=== PATIENT | female | born 1945 | race Hispanic/Latino ===

== ENCOUNTER → 2017-10-14 11:57 | Outpatient (CLI) | payer MEDICARE, OTHER, SELFPAY ==
--- NOTE | 2017-10-14 | DI.RAD.S_ITS ---
This blank DEXA report has been sent in error by the PACS system. The correct and complete report will be forthcoming in 1-2 days. Thank you for your patience and understanding. Dictated by: Deo Mckeon M.D. on 10/14/2017 at 13:50 Approved by: Deo Mckeon M.D. on 10/14/2017 at 13:50
--- NOTE | 2017-10-14 | DI.US.S_ITS ---
PROCEDURE: US PELVIC COMPLETE INDICATIONS: UTERINE FIBROIDS TECHNIQUE: Real-time scanning was performed of the pelvic organs, with image documentation. Additional endovaginal scanning was necessary due to incomplete visualization of the adnexal and endometrial structures by transabdominal scanning. COMPARISON: [facility], , PELVIC COMPLETE, 11/04/2015, 10:49. FINDINGS: Transabdominal scanning: Limited scanning through the kidneys shows no hydronephrosis. No pathologic free abdominal or pelvic fluid. Endovaginal scanning: Uterus: Uterus is normal in size at 6.4 x 4.3 x 5.2 cm. The endometrium measures 2.8 mm in combined thickness. 3 intramural fibroids present unchanged from prior examination largest measuring 1.8 x 1.8 x 1.3 cm. Ovaries: The right ovary is not visualized. The left ovary is normal measuring 2.0 x 0.9 x 1.2 cm. IMPRESSION: Myomatous uterus appearing unchanged from prior exam. Dictated by: Georgi PHAN Interpreted: Bonilla Kim MD on 10/14/2017 at 13:15 Approved by: Bonilla Kim M.D. on 10/14/2017 at 14:30
== END ==
PROVIDERS: Family Provider Family Medicine; PCP Family Medicine; Visit Provider Physician Assistant
DX: D25.1 Intramural leiomyoma of uterus (principal); Z78.0 Asymptomatic menopausal state; E07.9 Disorder of thyroid, unspecified; R29.890 Loss of height
CPT/HCPCS: 76830; 76856; 77080

== ENCOUNTER → 2018-02-27 12:37 | Outpatient (CLI) | payer MEDICARE, OTHER, SELFPAY ==
[2018-02-27 13:17] LABS: Add Manual Diff / Slide Review NO; Eosinophils Percent Auto 1.5 % (2-4); Hematocrit 40.9 % (36-46); Lymphocytes Percent Auto 35.8 % (25-40); Mean Corpuscular HGB Conc 34.2 % (30-36); Mean Corpuscular Hemoglobin 30.2 PG (26-34); Mean Corpuscular Volume 88.3 fL (80-100); Monocytes Percent Auto 5.3 % (3-14); Neutrophils Absolute Auto 5400 /uL (1500-7000); Neutrophils Percent Auto 56.4 % (50-75); Platelet Count 288 X10^3/uL (150-400); Red Blood Cell Count 4.63 X10^6/uL (4.0-5.2); Red Cell Distribution Width 12.8 % (11.6-14.8); White Blood Cell Count 9.7 X10^3/uL (4.5-11.0)
[2018-02-27 13:49] LABS: Alanine Aminotransferase 38 IU/L (9-52); Albumin 4.4 g/dL (3.5-5.0); Albumin Globulin Ratio 1.3 (1.0-2.8); Alkaline Phosphatase 66 U/L (38-126); Aspartate Aminotransferase 25 IU/L (14-36); Bilirubin Total 0.3 mg/dL (0.2-1.3); Blood Urea Nitrogen 18 mg/dL (7-17); Calcium 9.1 mg/dL (8.4-10.2); Carbon Dioxide 27 mmol/L (22-32); Chloride 100 mmol/L (98-107); Estimated Glomerular Filt Rate > 60.0 mL/min (>60); Globulin 3.5 g/dL (1.7-4.1); Glucose 104 mg/dL (80-110); HEMOLYSIS < 15 (0-50); Potassium 4.2 mmol/L (3.4-5.1); Sodium 139 mmol/L (137-145); Thyroid Stimulating Hormone 0.06 uIU/mL (0.47-4.68); Total Protein 7.9 g/dL (6.3-8.2)
[2018-02-27 14:17] LABS: Carcinoembryonic Antigen 1.5 ng/mL (0.1-3.0)
== END ==
PROVIDERS: Family Provider Internal Medicine; PCP Internal Medicine; Visit Provider Nurse Practitioner Gerontology
DX: C73 Malignant neoplasm of thyroid gland (principal)
CPT/HCPCS: 36415; 80053; 82378; 84443; 85025

== ENCOUNTER 2018-07-20 07:20 | Day surgery (SDC) | payer MEDICARE, OTHER, SELFPAY ==
[2018-07-20] VITALS (7 sets, daily range): BP systolic 70–97; BP diastolic 37–57; PULSE 52–55; RESP 11–16; TEMP 35.8–36.4; O2SAT 96–100; BMI 25.8
--- NOTE | 2018-07-20 | PATH_ITS ---
[facility] Accession Number: [id number] . 01 Material submitted: . PART A: colon - TRANSVERSE COLON POLYP PART B: colon - ASCENDING COLON POLYP X3 PART C: sigmoid colon - SIGMOID COLON POLYP . 01 Clinical history: . SCREENING COLONOSCOPY . 02 Diagnosis: A. Transverse Colon, Polyp, Biopsy: Tubular adenoma. . B. Ascending Colon, Polyps X3, Biopsies: Tubular adenoma in 2 of 4 fragments. Inflammatory polyp in 1 fragment. . C. Sigmoid Colon, Polyp, Biopsy: Tubular adenoma. BFI/07/21/2018 . 02 Electronically signed: . Alessia Conroy MD, Pathologist NPI- [id number] . 01 Gross description: . Part A: TRANSVERSE COLON POLYP: Received in formalin is 1 fragment(s) of currie, soft tissue measuring 0.4 x 0.3 x 0.3 cm which is entirely submitted and submitted entirely in 1 cassette(s) Part B: ASCENDING COLON POLYP X3: Received in formalin are multiple fragment(s) of currie, soft tissue measuring 0.1 x 0.1 x 0.1 cm to 0.4 x 0.4 x 0.3 cm which is entirely submitted and submitted entirely in 1 cassette(s) Part C: SIGMOID COLON POLYP: Received in formalin are 3 fragment(s) of currie, soft tissue measuring 0.1 x 0.1 x 0.1 cm to 0.3 x 0.3 x 0.3 cm which is entirely submitted and submitted entirely in 1 cassette(s) /D[facility] /[facility] . 02 Pathologist provided ICD-10: D12.3, D12.2, D12.5 . 02 CPT . 732530, 841984, 375373 Performed at: 01 [facility] [address] [place] [address], [place], [place] [id number] MD Nadir Gonzales MD Phone: [phone] Performed at: 02 [facility] [address] [place], [place] [id number] MD Alessia Conroy MD Phone: [phone]
--- NOTE | 2018-07-20 08:09 | PM.HP.1 ---
History of Present Illness Date Patient Seen: 07/20/18 Time Patient Seen: 08:09 Chief complaint: 14534 SCREENING COLONOSCOPY Narrative: 72 yo woman with hx of colon polyps with last colonoscopy 5-6yrs ago. Intermitent infrequent rectal bleeding from what is thought to be internal hemorrhoids. IBS with constipaiton and diarrhea - well controlled No family hx of colon cancer No IBD tolerated prep Patient History Social History household members: none Meds Home Medications Medication Instructions Recorded Confirmed Type hydrochlorothiazide 25 mg PO QDAY #0 12/03/16 02/28/18 History Multi-Vitamins with Iron 1 tab PO QAM 08/25/17 02/28/18 History aspirin 81 mg PO DAILY 08/25/17 02/28/18 History atenolol 25 mg PO DAILY 08/25/17 07/20/18 History calcitriol 0.5 mcg PO DAILY 08/25/17 02/28/18 History calcium carbonate [Tums] 400 mg PO BID PRN 08/25/17 02/28/18 History coenzyme Q10 [Co Q-10] 200 mg PO DAILY 08/25/17 02/28/18 History glucosamine sulfate [Glucosamine] 500 mg PO QAM 08/25/17 02/28/18 History ibuprofen [Advil] 200 mg PO Q4-6H PRN 08/25/17 02/28/18 History levothyroxine 100 mcg PO DAILY 08/25/17 02/28/18 History omega 9-evo-pto-fish oil [Fish Oil] 1 cap PO QAM 08/25/17 02/28/18 History atorvastatin [Lipitor] 20 mg PO DAILY 02/28/18 02/28/18 History lisinopril 10 mg PO DAILY 07/20/18 07/20/18 History Allergies Allergy/AdvReac Type Severity Reaction Status Date / Time No Known Drug Allergies Allergy Verified 08/25/17 13:48 Review of Systems Constitutional Constitutional: Denies fever(s) Eyes Eyes: Denies bulging eyes ENT Ears, Nose, Mouth, and Throat: No lip swelling Cardiovascular Cardiovascular: Denies generalize swelling Respiratory Respiratory: Denies stridor Gastrointestinal Gastrointestinal: Denies coffee ground emesis Musculoskeletal Musculoskeletal: Denies loss of height Integumentary/Breasts Skin/Breast: Denies wounds Neurologic Neurologic: Denies abnormal speech and Denies confusion Psychiatric Psychiatric: Denies confusion Endocrine Endocrine: Denies deepening of the voice Hematologic/Lymphatic Hematologic/Lymphatic: Denies lymphadenopathy Allergic/Immunologic Allergic/Immunologic: Denies lip swelling Exam Const General: cooperative and healthy appearing Orientation: alert [facility] Head: normal to inspection Nose: nares normal Mouth: oral mucosae normal and lip normal Eyes Eyelids: eyelids normal Conjunctivae: conjunctivae normal Sclera: sclerae normal Neck Neck: supple and other (No thyromegally) Chest Chest: other (LCTAB , regular respiratory effort) Cardio Rhythm: regular rhythm Heart Sounds: S1 normal, S2 normal, no gallops, no murmurs and no rubs GI Other: soft nontender non distended Skin General: no rashes or lesions noted Neuro General: alert and awake Psych Appearance: grossly normal Affect: normal affect Assessment & Plan Assessment & Plan narrative: 72 yo woman present for regular screaning colonscopy but also in setting of rectal bleeding Risk and benifits including perforation, , missed lesion, hypoxia all discussed Pt ready to proceed All questions answered
[2018-07-20] MEDS: SODIUM CHLORIDE 0.9% 1,000 ML 150 ML IV ×2 (08:22→09:49)
[2018-07-20] MEDS: ONDANSETRON 4 MG/2 ML INJ IV (08:22)
--- NOTE | 2018-07-20 08:39 | SUR.PREOP ---
bp LOW, USUSALLY IN THE 130'S SYSTOLIC. iv FLUIDS AT 200MLS/HR
[2018-07-20] MEDS: LIDOCAINE JELLY 2% 30 ML TOP (09:34)
[2018-07-20] MEDS: MIDAZOLAM 5 MG/5 ML VIAL IV (09:57)
[2018-07-20] MEDS: fentaNYL 250 MCG/5 ML INJ IV (09:58)
--- NOTE | 2018-07-20 10:28 | PM.OP.ENDO ---
Operative Date/Time/Diagnoses Date of procedure: 07/20/18 Time of procedure: 10:28 Pre-op diagnosis: screening colonoscopy Post-op diagnosis: same Procedure & Clinicians Study performed: screening colonoscopy with polypectomy x 5 cold biopsy forceps Same procedure as scheduled: No Indications: over due for screaning colonoscopy Surgeon: Jaime Kong Procedure Notes SCOAP/Timeout: completed Procedure in detail: Patient was brought to the endoscopy suite, time-out was completed. She was sedated with over the course of the procedure a total of 4 mg of midazolam and 100 mcg of fentanyl. A digital rectal exam was performed. There are no masses identified. Patient did have a prominent moderately inflamed right anterior column external hemorrhoid. 160 cm colonoscope was then advanced through the rectum in the folds of the colon until the cecum was reached. There was some tortuosity of the sigmoid colon but otherwise was straightforward. At the cecum the ileocecal valve, appendiceal orifice, gross foot oral identified. The colonoscope was then slowly withdrawn. Multiple polyps were identified and removed, there is a short segment of ascending colon that contained 3 distinct small sessile polyps. Each was removed with cold biopsy forceps. Within the transverse colon there was a single small sessile polyp as well-this was also removed with the cold biopsy forcep. Withdrawing further the 5th colon polyp was identified in the mid to distal sigmoid colon. This was also fully removed with biopsy forceps. The colonoscope was then used to inspect the rest of the rectum, it was retroflexed as well. There are no additional lesions identified. I did not identify diverticular disease. Colon prep was adequate Scope withdrawal time: 29 Sedation minutes: 54 Findings: polyp Specimen(s): other (Ascending colon polyps, sigmoid polyp, transverse colon polyp) Complications: none Impression: 1. Right anterior column enlarged external hemorrhoid 2. Ascending colon polyp x3 status post removal 3. Transverse colon polyp x1 status post removal 4. Sigmoid colon polyp x1 status post removal Recommendations: Colonscopy in 3 years Plan for aftercare: To PACU and then Follow up: as needed Disposition: PACU
--- NOTE | 2018-07-20 11:20 | SUR.PHASEII ---
Friend brought in, bp still low, close to admit bp. pt w/o s/s/of low bp. d/c instructions discussed with all, all voiced an understanding.
--- NOTE | 2018-07-20 11:53 | SUR.PHASEII ---
late entry: pt dressed when ready and left when ready and in stable condition, steady when up.
== END 2018-07-20 11:33 | disposition home or self-care (01) ==
PROVIDERS: PCP Internal Medicine; Visit Provider Surgery
PROC: 0DJD8ZZ Inspection of Lower Intestinal Tract, Via Natural or Artificial Opening Endoscopic (ICD-10-PCS; CPT 45378; principal; 2018-07-20 08:45)
DX: Z86.010 Personal history of colon polyps (principal); D12.3 Benign neoplasm of transverse colon; D12.2 Benign neoplasm of ascending colon; D12.5 Benign neoplasm of sigmoid colon; K58.2 Mixed irritable bowel syndrome; K64.4 Residual hemorrhoidal skin tags
CPT/HCPCS: 45380; 88305; 99152; 99153; J2250; J2405; J3010

== ENCOUNTER 2021-03-31 13:03 | Observation (INO) | payer MEDICARE, OTHER, SELFPAY ==
[2021-03-31] VITALS (13 sets, daily range): BP systolic 124–173; BP diastolic 55–74; PULSE 63–74; RESP 14–24; TEMP 36.4–36.9; O2SAT 97–100; BMI 21.5; BMI 22.9
--- NOTE | 2021-03-31 13:32 | DI.RAD.S_ITS ---
PROCEDURE: XR CHEST 1V INDICATIONS: chest pain TECHNIQUE: One view of the chest was acquired. COMPARISON: None. FINDINGS: Surgical changes and devices: None. Lungs and pleura: Lungs are clear. No pleural effusions or pneumothorax. Mediastinum: Mediastinal contours appear normal. Heart size is normal. Bones and chest wall: No suspicious bony lesions. Overlying soft tissues appear unremarkable. IMPRESSION: No acute cardiopulmonary process demonstrated radiographically. Dictated by: Viet Mills M.D. on 03/31/2021 at 14:31 Approved by: Viet Mills M.D. on 03/31/2021 at 14:34
[2021-03-31 13:47] LABS: Add Manual Diff / Slide Review NO; Basophils Absolute Auto 0 /uL (0-100); Basophils Percent Auto 0.3 % (0-2); Eosinophils Absolute Auto 0 /uL (0-450); Hematocrit 38.7 % (36-46); Hemoglobin 13.3 g/dL (12.0-16.0); Lymphocytes Absolute Auto 1500 /uL (1100-4500); Lymphocytes Percent Auto 17.2 % (25-40); Mean Corpuscular HGB Conc 34.3 % (30-36); Mean Corpuscular Hemoglobin 30.3 PG (26-34); Mean Corpuscular Volume 88.5 fL (80-100); Monocytes Absolute Auto 200 /uL (0-900); Monocytes Percent Auto 2.5 % (3-14); Neutrophils Absolute Auto 7000 /uL (1500-7000); Platelet Count 260 X10^3/uL (150-400); Red Blood Cell Count 4.38 X10^6/uL (4.0-5.2); Red Cell Distribution Width 13.3 % (11.6-14.8); White Blood Cell Count 8.7 X10^3/uL (4.5-11.0)
[2021-03-31 13:55] LABS: INR 1.1 (0.9-1.3); Prothrombin Time 12.7 SECONDS (10.1-12.7)
[2021-03-31 13:58] LABS: PTT Partial Thromboplastin Tim 31 SECONDS (26.4-36.2)
[2021-03-31 14:02] LABS: Alanine Aminotransferase 27 IU/L (<35); Albumin 4.6 g/dL (3.5-5.0); Albumin Globulin Ratio 1.2 (1.0-2.8); Alkaline Phosphatase 59 U/L (38-126); Aspartate Aminotransferase 32 IU/L (14-36); BUN Creatinine Ratio 35.8 (6-22); Bilirubin Total 0.5 mg/dL (0.2-1.3); Blood Urea Nitrogen 19 mg/dL (7-17); Carbon Dioxide 30 mmol/L (22-32); Chloride 99 mmol/L (98-107); Creatine Kinase 41 U/L (30-135); Estimated Glomerular Filt Rate > 60.0 mL/min (>60); Glucose 121 mg/dL (80-110); HEMOLYSIS < 15 (0-50); Lipase 103 U/L (23-300); Magnesium 1.5 mg/dL (1.6-2.3); Potassium 3.7 mmol/L (3.4-5.1); Sodium 137 mmol/L (137-145); Total Protein 8.6 g/dL (6.3-8.2)
[2021-03-31 14:13] LABS: Troponin I < 0.012 ng/mL (0.01-0.034)
--- NOTE | 2021-03-31 15:35 | PC.NURSE ---
Pt reports waking up at 0300, feeling dizzy and the lights looked like they were flashing. Went back to bed and then woke up with the same symptoms, plus left sided chest pressure, nausea, headache and high blood pressure. Reports all symptoms resolving and chest pressure is almost gone. States that she does have a history of migraines and feels some of the same symptoms, but it has been a long time since she has had one.
--- NOTE | 2021-03-31 16:31 | ED.CHESTPAIN ---
HPI - Chest Pain General Chief Complaint: Chest Pain Stated Complaint: CHEST PRESSURE DIZZY Time Seen by Provider: 03/31/21 15:35 Source: patient Mode of arrival: Ambulatory Limitations: no limitations Limitations: no limitations History of Present Illness HPI narrative: This is a 75-year-old female who comes with complaint of left-sided chest pressure dizziness that started last night. Patient states the dizziness was sort of blinking lights which she has had similarly which she has had prior migraines that has resolved. She has continued to have left upper chest pressure without radiation. She has had some nausea but no vomiting. She has not had any shortness of breath, no diaphoresis. No back or neck pain. No issues with bowel movements or urination. No cold, cough or congestion. No fevers or chills. She has not had any syncope or passing out. She has a very mild headache today improved compared to yesterday. She has a history of hypothyroidism, dyslipidemia, hypertension and prediabetes. She is on aspirin 81 mg daily. No cardiac stents or prior cardiac interventions. She had a thyroidectomy in 2014. No known drug allergies. No tobacco, alcohol or illicit. Her primary care is Dr. Dimas Mcpherson. Related Data Home Medications Medication Instructions Recorded Confirmed Multi-Vitamins with Iron 1 tab PO QAM 08/25/17 04/29/20 aspirin 81 mg tablet,delayed 81 mg PO DAILY 08/25/17 04/29/20 release atenolol 25 mg tablet 25 mg PO DAILY 08/25/17 04/29/20 calcitriol 0.5 mcg capsule 0.5 mcg PO DAILY 08/25/17 04/29/20 calcium carbonate 200 mg calcium 400 mg PO BID PRN 08/25/17 04/29/20 (500 mg) chewable tablet (Tums) coenzyme Q10 200 mg capsule (Co 200 mg PO DAILY 08/25/17 04/29/20 Q-10) glucosamine sulfate 500 mg tablet 500 mg PO QAM 08/25/17 04/29/20 (Glucosamine) levothyroxine 100 mcg tablet 75 mcg PO DAILY 08/25/17 10/01/20 omega 7-gzj-fwr-fish oil 1,000 mg 1 cap PO QAM 08/25/17 04/29/20 (120 mg-180 mg) capsule (Fish Oil) atorvastatin 20 mg tablet (Lipitor) 20 mg PO DAILY 02/28/18 04/29/20 acetaminophen 325 mg tablet 650 mg PO Q4H PRN 04/02/20 04/29/20 (Tylenol) chlorthalidone 25 mg tablet 25 mg PO DAILY 03/31/21 03/31/21 levothyroxine 75 mcg tablet 75 mcg PO DAILY 03/31/21 03/31/21 (Synthroid) Previous Rx's Medication Instructions Recorded acyclovir 5 % topical ointment 1 applictn TOP 6XD 7 Days #15 gram 01/02/20 Allergies Allergy/AdvReac Type Severity Reaction Status Date / Time No Known Drug Allergies Allergy Verified 03/31/21 13:29 Review of Systems Review of Systems ROS Unobtainable: All systems reviewed & are unremarkable except as noted in HPI and below Patient History Social History household members: none Smoking Status: Never smoker Smoking Status: Never smoker alcohol intake frequency: holidays/special occasions only Substance Use Type: does not use Exam Narrative Exam Narrative: GENERAL: Alert and oriented x three, elderly female in mild distress. HEENT: Head normocephalic, atraumatic, EOMI, pupils reactive, face symmetric, moist mucous membranes NECK: Supple, full range of motion CARDIOVASCULAR: Regular rate and rhythm without murmurs, rubs or gallops. No tenderness with palpation of the anterior chest. No erythema or skin changes. No swelling bilateral upper extremities. 2+ radial pulse. RESPIRATORY: Breath sounds equal bilaterally, no wheezes rales or rhonchi. ABDOMEN: Soft, nontender. Normoactive bowel sounds all 4 quadrants. No guarding or rebound, rigidity, no mass : No CVA tenderness EXTREMITIES: Normal range of motion, no clubbing or edema. Neurovascularly intact NEUROLOGICAL: Cranial nerves II through XII grossly intact. Moving all extremities SKIN: Warm, dry, no petechiae, no rashes or lesions. Initial Vital Signs Initial Vital Signs: Vital Signs Temperature 97.6 F 03/31/21 13:29 Pulse Rate 67 03/31/21 13:29 Respiratory Rate 14 03/31/21 13:29 Blood Pressure 130/60 03/31/21 13:29 Pulse Oximetry 99 03/31/21 13:29 Scores HEART Score Heart Score history: Highly Suspicious Heart Score EKG: Significant ST depression Heart Score Age: > or = 65 years old Heart Score risk factors: > 3 risk factors or hx of atherosclerotic disease Heart Score troponin: < or = to normal limit Heart Score Total: 8 Course Orders Ordered: ED Orders 03/31/21 13:32 XR chest 1V Stat EKG-12 Lead Stat 03/31/21 13:37 Complete Blood Count AUTO DIFF Stat Comprehensive Metabolic Panel Stat Lipase Stat Magnesium Stat Partial Thromboplastin Time Stat Prothrombin Time INR Stat Troponin & CK Cardiac Panel Stat 03/31/21 16:35 EKG-12 Lead Stat 03/31/21 17:00 Troponin I Stat 03/31/21 17:04 COVID19 -Nasal swab/Pre-Proc Stat 04/01/21 00:45 PTT [Partial Thromboplastin Time] Q6H 04/01/21 06:45 PTT [Partial Thromboplastin Time] Q6H 04/01/21 12:45 PTT [Partial Thromboplastin Time] Q6H 04/01/21 18:45 PTT [Partial Thromboplastin Time] Q6H Acetaminophen (Acetaminophen 325 Mg Tablet) 650 mg PO Q6HR PRN PRN Reason: pain Aspirin (Aspirin Ec 81 Mg Tablet) 81 mg PO DAILY [facility] Atenolol (Atenolol 25 Mg Tablet) 25 mg PO DAILY [facility] Atorvastatin Calcium (Atorvastatin 20 Mg Tablet) 20 mg PO BEDTIME [facility] Calcitriol (Calcitriol 0.25 Mcg Capsule) 0.5 mcg PO DAILY [facility] Heparin Sodium/Dextrose (Heparin Drip) 25,000 unit in 500 mls @ 12.846 mls/hr IV CONT [facility]; Protocol Last Admin: 03/31/21 18:43 Dose: 12 units/kg/hr, 12.846 mls/hr Documented by: Heparin Sodium/Dextrose (Heparin Drip) 25,000 unit in 500 mls @ 12.846 mls/hr IV CONT [facility]; Protocol Levothyroxine Sodium (Levothyroxine 100 Mcg Tablet) 75 mcg PO DAILY [facility] Naloxone HCl (Naloxone 0.4 Mg/Ml Vial) 0.2 mg IV Q2MIN PRN PRN Reason: Opiate Reversal Nitroglycerin (Nitroglycerin 0.4 Mg Sl Tab) 0.4 mg SL [id number] PRN PRN Reason: Chest Pain Ondansetron HCl (Ondansetron 4 Mg/2 Ml Inj) 4 mg IV Q8HR PRN PRN Reason: Nausea And Vomiting Discontinued Medications Aspirin (Aspirin 81 Mg Chew Tab) 324 mg PO NOW ONE Stop: 03/31/21 16:50 Last Admin: 03/31/21 16:53 Dose: 324 mg Documented by: JASON Heparin Sodium (Porcine) (Heparin 5,000 Unit/Ml Vial) 4,000 unit IV NOW ONE Stop: 03/31/21 18:36 Last Admin: 03/31/21 18:43 Dose: 4,000 unit Documented by: Reevaluation(s) Reevaluation #1: Chest pain has resolved. Discussed with patient troponin negative but story concerning for cardiac cause with concerning EKG changes. Would like to keep for observation. Time: 17:41 Reevaluation #2: Patient chest pain continues to be resolved. She was reluctant initially to be admitted but based on her EKG changes and history as well as risk factors we discussed I would like to keep her for observation she was well if the hospitalist agreed that would be appropriate to keep and after discussion with hospitalist and recommendations as well as Cardiology patient is agreeable to stay overnight. Consultations Consultation #1: Dr. Figueroa, hospitalist. Happy to admit after consultation with Cardiology they were also concerned about patient's EKG. But would like cardiology consultation prior to admission with her concerning history particularly since no beds are available regionally. Consultation #2: CardiologyWaqar. Recommend starting IV heparin but does not feel transfer necessitate at this time he would recommend repeat EKGs overnight and in the morning if there is dynamic changes to go ahead and call back for potential transfer but otherwise if not lack sick/nuclear scan in the morning Vital Signs Vital signs: Vital Signs - 8 hr 03/31/21 13:29 03/31/21 15:18 03/31/21 15:30 Temperature 97.6 F Pulse Rate 67 65 69 Respiratory Rate 14 Blood Pressure 130/60 154/70 H 144/55 H Pulse Oximetry 99 99 99 03/31/21 16:00 03/31/21 16:30 03/31/21 17:00 Temperature Pulse Rate 64 67 67 Respiratory Rate 18 22 Blood Pressure 136/65 142/70 H 132/63 Pulse Oximetry 98 99 98 03/31/21 17:35 03/31/21 18:00 03/31/21 18:30 Temperature Pulse Rate 74 66 68 Respiratory Rate 22 Blood Pressure Pulse Oximetry 97 100 98 MDM - Chest Pain Lab Data Result diagrams: 03/31/21 13:37 03/31/21 13:37 Labs: Lab Results 03/31/21 03/31/21 03/31/21 Range/Units 13:37 13:37 13:37 WBC 8.7 (4.5-11.0) X10^3/uL RBC 4.38 (4.0-5.2) X10^6/uL Hgb 13.3 (12.0-16.0) g/dL Hct 38.7 (36-46) % MCV 88.5 (80-100) fL MCH 30.3 (26-34) PG MCHC 34.3 (30-36) % RDW 13.3 (11.6-14.8) % Plt Count 260 (150-400) X10^3/uL Neut % (Auto) 80.0 H (50-75) % Lymph % (Auto) 17.2 L (25-40) % [place] % (Auto) 2.5 L (3-14) % Eos % (Auto) 0.0 L (2-4) % Baso % (Auto) 0.3 (0-2) % Neut # (Auto) 7000 (9204-4658) /uL Lymph # (Auto) 1500 (7354-8807) /uL [place] # (Auto) 200 (0-900) /uL Eos # (Auto) 0 (0-450) /uL Baso # (Auto) 0 (0-100) /uL PT 12.7 (10.1-12.7) SECONDS INR 1.1 (0.9-1.3) APTT 31 (26.4-36.2) SECONDS Sodium 137 (137-145) mmol/L Potassium 3.7 (3.4-5.1) mmol/L Chloride 99 (98-107) mmol/L Carbon Dioxide 30 (22-32) mmol/L BUN 19 H (7-17) mg/dL Creatinine 0.53 (0.52-1.04) mg/dL Estimated GFR > 60.0 (>60) mL/min BUN/Creatinine Ratio 35.8 H (6-22) Glucose 121 H (80-110) mg/dL Calcium 9.0 (8.4-10.2) mg/dL Magnesium 1.5 L (1.6-2.3) mg/dL Total Bilirubin 0.5 (0.2-1.3) mg/dL AST 32 (14-36) IU/L ALT 27 (<35) IU/L Alkaline Phosphatase 59 (38-126) U/L Total Creatine Kinase 41 (30-135) U/L CK-MB (CK-2) TNP CK-MB (CK-2) Rel Index TNP Troponin I < 0.012 (0.01-0.034) ng/mL Total Protein 8.6 H (6.3-8.2) g/dL Albumin 4.6 (3.5-5.0) g/dL Globulin 4.0 (1.7-4.1) g/dL Albumin/Globulin Ratio 1.2 (1.0-2.8) Lipase 103 (23-300) U/L SARS-CoV-2 (PCR) (Negative) 03/31/21 03/31/21 Range/Units 17:00 17:04 WBC (4.5-11.0) X10^3/uL RBC (4.0-5.2) X10^6/uL Hgb (12.0-16.0) g/dL Hct (36-46) % MCV (80-100) fL MCH (26-34) PG MCHC (30-36) % RDW (11.6-14.8) % Plt Count (150-400) X10^3/uL Neut % (Auto) (50-75) % Lymph % (Auto) (25-40) % [place] % (Auto) (3-14) % Eos % (Auto) (2-4) % Baso % (Auto) (0-2) % Neut # (Auto) (8126-6230) /uL Lymph # (Auto) (1589-2940) /uL [place] # (Auto) (0-900) /uL Eos # (Auto) (0-450) /uL Baso # (Auto) (0-100) /uL PT (10.1-12.7) SECONDS INR (0.9-1.3) APTT (26.4-36.2) SECONDS Sodium (137-145) mmol/L Potassium (3.4-5.1) mmol/L Chloride (98-107) mmol/L Carbon Dioxide (22-32) mmol/L BUN (7-17) mg/dL Creatinine (0.52-1.04) mg/dL Estimated GFR (>60) mL/min BUN/Creatinine Ratio (6-22) Glucose (80-110) mg/dL Calcium (8.4-10.2) mg/dL Magnesium (1.6-2.3) mg/dL Total Bilirubin (0.2-1.3) mg/dL AST (14-36) IU/L ALT (<35) IU/L Alkaline Phosphatase (38-126) U/L Total Creatine Kinase (30-135) U/L CK-MB (CK-2) CK-MB (CK-2) Rel Index Troponin I < 0.012 (0.01-0.034) ng/mL Total Protein (6.3-8.2) g/dL Albumin (3.5-5.0) g/dL Globulin (1.7-4.1) g/dL Albumin/Globulin Ratio (1.0-2.8) Lipase (23-300) U/L SARS-CoV-2 (PCR) Negative (Negative) Imaging Data Chest x-ray: Radiologist's Impression: [address] [address] XRay Report Signed Patient: Hien Marroquin MR#: [id number] : 1945 Acct:[id number] Age/Sex: 75 / F Date of Service: 03/31/21 Loc: ED Accession Number: [id number] ?? Procedure: XR chest 1V Ordering Provider: Thuy David D.O. PROCEDURE:? XR CHEST 1V ? INDICATIONS:? chest pain ? TECHNIQUE:? One view of the chest was acquired.? ? COMPARISON:? None. ? FINDINGS:? ? Surgical changes and devices:? None.? ? Lungs and pleura:? Lungs are clear.? No pleural effusions or pneumothorax.? ? Mediastinum:? Mediastinal contours appear normal.? Heart size is normal.? ? Bones and chest wall:? No suspicious bony lesions.? Overlying soft tissues appear unremarkable.? ? IMPRESSION:? No acute cardiopulmonary process demonstrated radiographically. ? ? Dictated by: Viet Mills M.D. on 03/31/2021 at 14:31 ? ? Approved by: Viet Mills M.D. on 03/31/2021 at 14:34?? ECG Data Attestation: I personally reviewed and interpreted this ECG as follows: Prior ECG tracings: not available for review Interpretation: Sinus rhythm with sinus arrhythmia. Rate of 68 [place] 164 QRS 80 QTC 427. Patient appears to have some depression 2 3 AVF. T-wave inversion in lead V3 4. No elevation. No priors for comparison. EKG2. Sinus rhythm, rate of 66, IL 170 QRS 80 QTC 431. Patient does appear to have some ST depression. Her T-wave inversion appears resolved in V3 V4. No acute elevation appreciated. MDM Narrative Medical decision making narrative: This is a pleasant 75-year-old female comes in with complaint of intermittent left-sided chest pressure with some dizziness a yesterday which has resolved. Left chest pressure is intermittent with no clearly the exacerbating factor but patient has multiple risk factors for cardiac cause with EKG changes that are concerning for possible ischemia. Patient has dynamic changes only in 1 be but does have depression and 2 3 AVF as well as dynamic changes be 3 and some persistent T-wave changes in V4. Patient does not have priors for comparison. Troponin 2 hour troponin were negative with no other acute changes to her lab work to describe her symptoms. I have not found other clear cause and after discussion with hospitalist and Cardiology plan to keep patient overnight, continue heparin IV with serial troponins and EKGs. Plan for lacks a or nuclear med scan in the morning if patient does not have any dynamic changes or enzyme changes on her troponin overnight. If she does have these plan is for Cardiology to be re-contacted for transfer. Discharge Plan Departure Patient Disposition: Admitted as Observation Clinical Impression: Chest pain Admit Date/Time: 03/31/21 18:36 Admit Provider: Gil Figueroa
[2021-03-31] MEDS: ASPIRIN 81 MG CHEW TAB 324 MG PO (16:53)
[2021-03-31 17:28] LABS: COVID19 -Nasal RAPID Negative (Negative)
[2021-03-31 17:34] LABS: Troponin I < 0.012 ng/mL (0.01-0.034)
[2021-03-31] MEDS: HEPARIN DRIP 25,000 UNIT/500 ML IV.SOLN 12.846 UNIT IV (18:43)
[2021-03-31] MEDS: HEPARIN 5,000 UNIT/ML VIAL 4000 UNIT IV (18:43)
--- NOTE | 2021-03-31 18:48 | DI.NM.S_ITS ---
PROCEDURE: NM JUAN PERF SPECT REST & STR Rest and exercise myocardial perfusion SPECT with gated imaging and ejection fraction RADIOPHARMACEUTICAL: 11.6 mCi Tc-99m sestamibi IV at rest and 26.8 mCi Tc-99m sestamibi IV at peak exercise. A 1-gwv-vfqsqxeb was performed. INDICATIONS: chest pain TECHNIQUE: Radiopharmaceutical was injected at peak stress test, and also at rest. SPECT images were obtained. SPECT myocardial perfusion images were displayed in short axis, horizontal long axis, and vertical long axis views. Gated images were reviewed using Biomoda software. COMPARISON: None. CARDIAC STRESS: A standard Kike treadmill exercise tolerance test was performed by the patient under the supervision of an attending staff. The patient exercised for 6 minutes and 0 seconds; 7.0 METS; functional aerobic impairment (MANGO) is -9%. Hemodynamic data: There is normal blood pressure and heart rate response to exercise stress. Patient achieved 90% of maximum predicted heart rate at peak exercise. Peak blood pressure 164/84. Symptoms: Patient denied chest pain during exercise. EKG: No diagnostic EKG changes of ischemia; no ectopy. FINDINGS: Raw data: There is good myocardial labeling by radiotracer. No significant motion artifacts. Bfqc-xu-evjgk ratio is 0.29 (normal is less than 0.38 for sestamibi tracer, and less than 0.50 for thallium tracer). Left ventricle function: Gated images demonstrate normal left ventricle wall thickening. No segmental wall motion abnormality. No transient ischemic dilation; TID is 0.93 (normal less than 1.3). The left ventricle resting end-diastolic volume is 67 mL. Left ventricle stress ejection fraction is >75%; normal values are above 45%. Myocardial perfusion: There is normal distribution of activity in the left and right ventricular myocardium. No fixed or reversible perfusion defects. IMPRESSION: 1. No evidence of exercise-induced ischemia or scar on SPECT images. 2. Normal exercise ECG. 3. Good exercise capacity. 4. Normal blood pressure response to exercise. Dictated by: Hodan Conley D.O. on 04/01/2021 at 16:33 Approved by: Hodan Conley M.D. on 04/01/2021 at 16:37
--- NOTE | 2021-03-31 18:48 | DI.ECHO.S_ITS ---
[facility] +---------+ : : [address] : : : : [id number] : : : : Phone: [phone]+ Echocardiogram Report + + :Name: IZA CARTWRIGHT Study Date: 04/01/2021 Height: 62 in : :[facility] ReadingLocation: Weight: 118 lb : : Gender: Female BSA: 1.5 m2 : :: 1945 Age: 75 yrs BP: 109/55 mmHg: :Reason For Study: CHEST PAIN : :Ordering Physician: DARIUS, : :ДМИТРИЙ Performed By: Katerine Stout : :Referring: ДМИТРИЙ MCCOY : + + Interpretation Summary 1) Normal left ventricular thickness, size, wall motion, and systolic function (EF 60-65%). 2) Normal right ventricular size and function. 3) No significant valvular abnormalities. 4) Mild atherosclerotic plaque(s) in the aortic arch. 5) Compared to the Echo done 12/12/2017, no significant change. Procedure: A two-dimensional transthoracic echocardiogram with color flow and Doppler was performed. The study quality was technically adequate. Comparison is made with the echocardiogram of 12/12/2017. The patient was in sinus rhythm with heart rates between 60-65 bpm during the exam. Left Ventricle: The left ventricle is normal in size and wall thickness. The ejection fraction is estimated to be 60-65%. Left ventricular systolic function appears normal without focal wall motion abnormalities. Right Ventricle: The right ventricle is normal in size and function. Atria: The left atrial size is normal. Right atrial size is normal. There is no Doppler evidence for an interatrial shunt. Mitral Valve: The mitral valve is normal in structure and function. There is trace mitral regurgitation. Aortic Valve: The aortic valve is trileaflet. The aortic valve opens well. There is no aortic valve stenosis. No aortic regurgitation is present. Tricuspid Valve: The tricuspid valve is normal in structure and function. There is mild tricuspid regurgitation. The right ventricular systolic pressure is estimated to be at least 25 mmHg based on an estimated right atrial pressure of 3 mm Hg. Pulmonic Valve: The pulmonic valve leaflets are thin and pliable; valve motion is normal. There is no pulmonic valvular regurgitation. Great Vessels: The aortic root is normal size. The dimensions of the ascending aorta are normal. Mild atherosclerotic plaque(s) in the aortic arch. The IVC is of normal diameter and collapses greater than 50% with a sniff. This suggests a low right atrial pressure of 3 mm Hg. Pericardium/ Pleura There is no pericardial effusion. There is no pleural effusion. MMode/2D Measurements & Calculations LVIDd: 4.8 cm LVOT diam: 2.0 cm LVIDs: 3.1 cm Ao root diam: 2.9 cm FS: 36.4 % asc Aorta Diam: 2.9 cm IVSd: 0.74 cm Ao Arch Diam (Prox Trans): 2.1 cm LVPWd: 0.83 cm LV gipson. diameter/BSA (cm/m^2): 3.2 LV sys. diameter/BSA (cm/m^2): 2.0 LA A2 area: 17.9 cm2 RA long axis: 5.2 cm LA A4 area: 17.8 cm2 RA area: 15.1 cm2 LA length (vol): 5.5 cm RA vol: 37.1 ml LA vol: 49.5 ml RA : 24.3 ml/m2 LA vol index: 32.4 ml/m2 IVC diam: 1.1 cm RVD1 (basal): 2.7 cm TAPSE: 2.1 cm Doppler Measurements & Calculations Ao V2 max: 176.8 cm/sec LVOT Max Jaret: 98.9 cm/sec Ao V2 mean: 114.8 cm/sec LV V1 max P.9 mmHg Ao max P.5 mmHg LV V1 VTI: 24.9 cm Ao mean P.1 mmHg CASSIE(I,D): 1.7 cm2 Ao V2 VTI: 45.4 cm CASSIE(V,D): 1.7 cm2 sev ratio: 0.55 CASSIE indexed to BSA (cm^2/m^2): 1.1 MV E max jaret: 92.5 cm/sec TR max jaret: 233.6 cm/sec MV A max jaret: 86.6 cm/sec TR max P.8 mmHg MV E/A: 1.1 PA V2 max: 92.9 cm/sec Med Peak E' Jaret: 7.2 cm/sec PA V2 mean: 65.9 cm/sec E/E' med: 12.8 PA mean P.9 mmHg Lat Peak E' Jaret: 7.4 cm/sec PA pr(Accel): 20.8 mmHg E/E' lat: 12.5 E/e' average: 12.7 MV dec time: 0.29 sec SV(LVOT): 77.0 ml Reading Physician:12:57 PM
[2021-03-31 20:19] LABS: TSH w/ Reflex to FT4 2.58 uIU/mL (0.47-4.68)
[2021-03-31] MEDS: ATORVASTATIN 20 MG TABLET PO (20:54)
--- NOTE | 2021-03-31 21:30 | PM.HP.1 ---
History of Present Illness History of Present Illness Date Patient Seen: 03/31/21 Time Patient Seen: 18:49 Chief complaint: CHEST PRESSURE DIZZY Narrative: Hien Marroquin is a delightful 75-year-old female with a history of hypothyroidism, dyslipidemia, hypertension, prediabetes, history of medullary thyroid cancer stage I, thyroidectomy, history of small GI stromal tumor, and cystocele with uterine prolapse who presented to the ED with a complaint of left-sided chest pressure and dizziness that started last night.? Patient states the dizziness was sort of blinking lights which she has had similarly which she has had prior migraines that has resolved.? She had continued to have left upper chest pressure without radiation, that lasted several hrs.? Nothing worsened, improved, or changed the pain. She feel similar pain to the left side of her neck and below her left shoulder blade. Patient denies weakness, numbness, tingling, difficulty with ambulation, swallowing, speech, balance, coordination, abdominal pain, nausea, vomiting, chest palpitations, irregular heartbeat, tachycardia, shortness of breath, diaphoresis, peripheral edema, issues with bowel movements or urination, cold, cough, congestion, fevers, body aches, or chills.? She has a very mild headache today that has resolved. She is on aspirin 81 mg daily.? No cardiac stents or prior cardiac interventions. No known drug allergies.? No tobacco, alcohol or illicit.? Her primary care is Dr. Dimas Mcpherson.? Admit interview the patient reveals that she was advised that she had prediabetes several months ago and made significant changes to her diet and began to exercise. The patient has been doing increasing upper body arm exercises daily. I was able to reproduce her pain to the left upper area of the chest (where she c/o pressure) with palpation and with arm movement. The patient reports that she has had increasing muscle aches and pains to her upper shoulder area and chest area with the increase in her exercise. The patient also has lost an estimated 15-20 lb recently. She cut out all carbohydrates and sugars in her diet after being advised the pre diabetes. 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 She has been experiencing multiple episodes of dizziness and lightheadedness upon standing. A few days ago upon waking she experienced an episode of dizziness, in which she subsequently passed out and found herself on the floor. She reports that her A1c was 6.3 when she was advised that she was prediabetic, and has reduced her A1c to 5.5 at last check. Her current physician is concerned that she is having low blood sugars. At this time patient states all signs and symptoms have resolved. Upon admit patient's temp is 97.6?, BP 157/74, HR 71, R 14, O2 saturation 99% on room air. Patient's CBC and chemistry panels were all within normal limits. Patient's chest x-ray was negative for any acute cardiopulmonary processes. 1st EKG demonstrated a sinus rhythm with sinus arrhythmia, rate of 68 and some depressions in lead 2 and 3 and AVF, with T-wave inversion in V3 and V4. Patient's 2nd EKG demonstrated sinus rhythm with a rate of 66, some ST depressions, but the T-wave inversion had resolved in V3 and V4. Patient's 1st & 2nd troponin were both negative. ED physician contacted Dr. Zavaleta cardiology for consult: He advised the patient be placed on a heparin drip overnight until echo could be completed, trend serial troponins and EKGs. Patient to be admitted for chest pain rule out. Patient History Medical History (Updated 03/31/21 @ 21:51 by SHAWN Du) Essential hypertension History of colon polyps History of gastrointestinal stromal tumor (GIST) Hyperlipidemia Hypothyroidism associated with surgical procedure Thyroid cancer, medullary carcinoma Surgical History (Updated 03/31/21 @ 21:51 by JENNIFER Du-TRISH) History of thyroidectomy Family & Social History Family History Mother Diabetes mellitus Father Stroke Social History: household members none - 2018 Prior Living Arrangements House Safety & Behavioral: Feels Safe in Current Yes Environment Been Physically Hurt or No Threatened By a Person Suicidal Ideation Description None Suicide Plan Description No Plan Tobacco & Substance use: Smoking Status Never smoker alcohol intake frequency holiday/special occasion Substance Use Type does not use Meds Home Medications and Allergies Home Medications Medication Instructions Recorded Confirmed Type Multi-Vitamins with Iron 1 tab PO QAM 08/25/17 03/31/21 History aspirin 81 mg tablet,delayed 81 mg PO DAILY 08/25/17 03/31/21 History release atenolol 25 mg tablet 25 mg PO DAILY 08/25/17 03/31/21 History calcitriol 0.5 mcg capsule 0.5 mcg PO DAILY 08/25/17 03/31/21 History calcium carbonate 200 mg calcium 400 mg PO BID PRN 08/25/17 03/31/21 History (500 mg) chewable tablet (Tums) coenzyme Q10 200 mg capsule (Co 200 mg PO DAILY 08/25/17 03/31/21 History Q-10) glucosamine sulfate 500 mg tablet 500 mg PO QAM 08/25/17 03/31/21 History (Glucosamine) omega 1-wsa-qck-fish oil 1,000 mg 1 cap PO QAM 08/25/17 03/31/21 History (120 mg-180 mg) capsule (Fish Oil) atorvastatin 20 mg tablet (Lipitor) 20 mg PO DAILY 02/28/18 03/31/21 History acyclovir 5 % topical ointment 1 applictn TOP 6XD 7 Days #15 gram 01/02/20 03/31/21 Rx acetaminophen 325 mg tablet 650 mg PO Q4H PRN 04/02/20 03/31/21 History (Tylenol) chlorthalidone 25 mg tablet 12.5 mg PO DAILY 03/31/21 03/31/21 History levothyroxine 75 mcg tablet 75 mcg PO DAILY 03/31/21 03/31/21 History (Synthroid) Allergies Allergy/AdvReac Type Severity Reaction Status Date / Time No Known Drug Allergies Allergy Verified 03/31/21 13:29 Review of Systems Review of Systems Narrative: All 12 point systems reviewed with the patient and are negative except otherwise documented. Exam Vital Signs (past 8 hours): - 03/31/21 15:18 03/31/21 15:30 03/31/21 16:00 Pulse Rate 65 69 64 Respiratory Rate 18 Blood Pressure 154/70 H 144/55 H 136/65 Pulse Oximetry 99 99 98 03/31/21 16:30 03/31/21 17:00 03/31/21 17:35 Pulse Rate 67 67 74 Respiratory Rate 22 Blood Pressure 142/70 H 132/63 Pulse Oximetry 99 98 97 03/31/21 18:00 03/31/21 18:30 03/31/21 18:50 Pulse Rate 66 68 66 Respiratory Rate 22 24 Blood Pressure 173/72 H Pulse Oximetry 100 98 98 03/31/21 19:00 Pulse Rate 71 Respiratory Rate 14 Blood Pressure 157/74 H Pulse Oximetry 99 Oxygen Delivery Method Room Air Narrative Exam Narrative: General: Patient is a well-developed, appears underweight, delighful female in no distress at this time. HEENT: Normocephalic, atraumatic, extraocular muscles intact, oral pharynx is clear and mucous membranes are moist. Neck is supple and symmetric, trachea is midline, no adenopathy, no thyroid enlargement, nontender, no masses palpated. Negative for JVD Chest: Normal AP diameter and contour without kyphoscoliosis, no nasal flaring, retractions, or tachypneic labored Lungs: Auscultation of all lung alvarez are clear without adventitious sounds, wheezes, rhonchi, or rales. Cardio: S1 & S2 with regular rate and rhythm without murmur, rubs, or gallops, no carotid bruit, no cardiac pulsations present. Abdomen: Soft nontender, negative for organomegaly, or masses. Bowel sounds are present in all 4 quadrants without guarding or rebound, no CVA tenderness. Musculoskeletal: Muscle strength and tone are equal within normal limits, no deformity, crepitus, effusions, cyanosis, clubbing or edema present. Full range of motion intact radial and pedal pulses are normal. Able to elicit pain over the left upper chest area, just left of the MCL 2nd/3rd intercostal space with palpation an adduction and abduction of the left arm. Skin: Warm dry and intact without rashes, ulcerations or petechiae. Neuro: Alert and orientated x3, strength is +5/5 in all extremities, sensation to touch intact, no gross deficits noted of cranial nerves. Psych: Patient has a well-kept appearance, appropriate affect, mental status attitude thought context and judgment are appropriate for age. Objective Labs Result Diagrams: 03/31/21 13:37 03/31/21 13:37 Labs: Laboratory Results - last 24 hr 03/31/21 03/31/21 03/31/21 13:32 13:37 13:37 WBC 8.7 RBC 4.38 Hgb 13.3 Hct 38.7 MCV 88.5 MCH 30.3 MCHC 34.3 RDW 13.3 Plt Count 260 Neut % (Auto) 80.0 H Lymph % (Auto) 17.2 L [place] % (Auto) 2.5 L Eos % (Auto) 0.0 L Baso % (Auto) 0.3 Neut # (Auto) 7000 Lymph # (Auto) 1500 [place] # (Auto) 200 Eos # (Auto) 0 Baso # (Auto) 0 PT 12.7 INR 1.1 APTT 31 Sodium Potassium Chloride Carbon Dioxide BUN Creatinine Estimated GFR BUN/Creatinine Ratio Glucose Calcium Magnesium Total Bilirubin AST ALT Alkaline Phosphatase Total Creatine Kinase CK-MB (CK-2) CK-MB (CK-2) Rel Index Troponin I Total Protein Albumin Globulin Albumin/Globulin Ratio Lipase TSH 2.58 SARS-CoV-2 (PCR) 03/31/21 03/31/21 03/31/21 13:37 17:00 17:04 WBC RBC Hgb Hct MCV MCH MCHC RDW Plt Count Neut % (Auto) Lymph % (Auto) [place] % (Auto) Eos % (Auto) Baso % (Auto) Neut # (Auto) Lymph # (Auto) [place] # (Auto) Eos # (Auto) Baso # (Auto) PT INR APTT Sodium 137 Potassium 3.7 Chloride 99 Carbon Dioxide 30 BUN 19 H Creatinine 0.53 Estimated GFR > 60.0 BUN/Creatinine Ratio 35.8 H Glucose 121 H Calcium 9.0 Magnesium 1.5 L Total Bilirubin 0.5 AST 32 ALT 27 Alkaline Phosphatase 59 Total Creatine Kinase 41 CK-MB (CK-2) TNP CK-MB (CK-2) Rel Index TNP Troponin I < 0.012 < 0.012 Total Protein 8.6 H Albumin 4.6 Globulin 4.0 Albumin/Globulin Ratio 1.2 Lipase 103 TSH SARS-CoV-2 (PCR) Negative Assessment & Plan Assessment & Plan narrative: Hien Marroquin is a delightful 75-year-old female with a history of hypothyroidism, dyslipidemia, hypertension, prediabetes, history of medullary thyroid cancer stage I, thyroidectomy, history of small GI stromal tumor, and cystocele with uterine prolapse who presented to the ED with a complaint of left-sided chest pressure and dizziness that started this morning. Patient admitted for chest pain rule out. 1. Chest pain (chest pressure to left upper chest area), acute, present on admission -in the ED patient had changes between 1st EKG and 2nd EKG-1st [address] Zavaleta Cardiology was consulted and recommended the patient be admitted for OBS. -serial EKGs -trend troponins -Heparin drip until echo results completed- aPTT monitoring- Bleeding risk monitoring. -echo and stress test tomorrow. -in examining the patient and discussion I discovered that I could elicit the chest pain and discomfort to her upper left chest area with palpation, and muscle movement with upper arm adduction abduction. The patient notes that she has been exercising quite strenuously lately of her upper arms. This is most likely costochondritis/ muscle strain of the pectoral muscle. -I recommend upon discharge patient education and teaching material regarding muscle strain management. And follow-up with her PCP or cardiologists if symptoms return or worsen. 2. Lightheadedness, syncope, acute on chronic, present on admission -patient reported multiple episodes of lightheadedness, and 1 episode of syncope within the last few weeks. -The patient has also dropped a significant amount of weight due to changes in her diet and has cut out all carbs and sugars. Cardiology has since been tapering back on her blood pressure medications. I suspect that she is having a combination also of occasional postural orthostatic hypotension and hypoglycemia. -discuss this with the patient, patient education provided -A1c ordered -orthostatics ordered -recommended patient log a.m. blood sugars and blood pressures -Consider decreasing or stop patient's chlorthalidone on discharge- as it may be contributing. holding at this time. F/U with Cardio 3. Essential hypertension, acute on chronic, present on admission -patient's blood pressure was elevated upon admit 157/74. -continue atenolol 4. Hyperlipidemia, chronic, present on admission -lipid panel ordered 5. Hypothyroidism status post thyroidectomy, chronic, present on admission -TSH and free T4 ordered -continue levothyroxine Code status:Full Surrogate decision maker: Nova Peña Burak Lloyd and Kim Mcgarry COVID PCR:Negative COVID vaccination: Unknown DVT/VTE prophylaxis: Heparin drip and SCDs Disposition: Patient admitted for observation expected length of stay less than 2 midnights I have utilized all available immediate resources to obtain, update, or review the patient's current medications. I confirmed that the patient's advanced care plan is present, Code status is documented and/or surrogate decision maker is listed in the patient's medical record. Time Spent With Patient Critical Care time: I spent a total of [] minutes of critical care time on this patient's care today; this time is exclusive of procedural time. Quality VTE Deep Vein Thrombosis/Pulmonary Embolism Present on Admission: No
--- NOTE | 2021-03-31 22:03 | PC.ADMIT ---
Patient admitted at 1935 to room 218 per stretcher from ER but transferred into bed with SBA. Is alert and oriented. Breath sounds CTA with RA sat of 100%. Denies SOB or chest pain/pressure. Placed on telemetry and reading was SR. Denied nausea. BT present and abdomen is soft. States she has urinary urgency and dribbles so wearing small pad; denied dysuria. Is able to turn self in bed. SBA will be provided when up to bathroom due to being on heparin gtt and wearing bilateral calf SCD's. Denied pain. Fall risk score is low. [place] [id number] Jean Gonzalez Admission Note: The patient,Hien Marroquin,75 y/o, was given written information regarding hospital policies, unit procedures and contact persons. Patient's smoking status: Never smoker. Vital Signs - 8 hr 03/31/21 15:18 03/31/21 15:30 03/31/21 16:00 Temperature Pulse Rate 65 69 64 Respiratory Rate 18 Blood Pressure 154/70 H 144/55 H 136/65 Pulse Oximetry 99 99 98 03/31/21 16:30 03/31/21 17:00 03/31/21 17:35 Temperature Pulse Rate 67 67 74 Respiratory Rate 22 Blood Pressure 142/70 H 132/63 Pulse Oximetry 99 98 97 03/31/21 18:00 03/31/21 18:30 03/31/21 18:50 Temperature Pulse Rate 66 68 66 Respiratory Rate 22 24 Blood Pressure 173/72 H Pulse Oximetry 100 98 98 03/31/21 19:00 03/31/21 19:35 Temperature 98.5 F Pulse Rate 71 63 Respiratory Rate 14 18 Blood Pressure 157/74 H 124/61 Pulse Oximetry 99 100
[2021-03-31] MEDS: MAGNESIUM SULFATE 2 GM/50 ML PIGGYBACK IV (22:38)
[2021-04-01] VITALS (10 sets, daily range): BP systolic 101–125; BP diastolic 53–62; PULSE 60–97; RESP 14–18; TEMP 36.3–36.9; O2SAT 97–100
[2021-04-01 01:16] LABS: Troponin I < 0.012 ng/mL (0.01-0.034)
[2021-04-01 01:22] LABS: PTT Partial Thromboplastin Tim 123 SECONDS (26.4-36.2)
[2021-04-01 05:59] LABS: Cholesterol 120 mg/dL (140-199); HDL Cholesterol 47 mg/dL (40-60); LDL Cholesterol Calculated 60 mg/dL (<100); Triglycerides 66 mg/dL (35-150)
[2021-04-01] MEDS: LEVOTHYROXINE 75 MCG TABLET PO (06:26)
[2021-04-01 07:04] LABS: PTT Partial Thromboplastin Tim 62 SECONDS (26.4-36.2)
--- NOTE | 2021-04-01 08:31 | PC.NURSE ---
Addendum entered by Neela Peter R.N. 04/01/21 10:08: Back on AC unit at approx 1000. Denies any chest pain. Original Note: Day shift: Pt off unit for stress test at approx 0820. Heparin drip d/c'd by Dr Buitrago.
[2021-04-01] MEDS: calcitrioL 0.25 MCG CAPSULE 0.5 MCG PO (10:10)
[2021-04-01] MEDS: ASPIRIN EC 81 MG TABLET PO (10:10)
--- NOTE | 2021-04-01 11:43 | PC.NURSE ---
Day shift: Off unit and off tele at approx 1135 for next part of Stress Test.
--- NOTE | 2021-04-01 12:01 | CM.DANOTE ---
Patient is a 75 yo female who was admitted on 03/31/21 for Chest Pressure/Dizzy. Pt has [employer] and [employer] for insurance and her PCP is Dr. Dimas Mcpherson. EMR was reviewed. Per MD, pt with hx of prediabetes with recent significant weight loss on purpose due to pre-diabetes dx and significant diet change. Pt on Hep Drip and Echo and stress test pending for r/o Chest Pain. Pt also established with Oncologist Dr. Salvador for recent thyroid CA. SW met bedside with pt and explained role and pt confirms that she lives in [place] alone and is active and independent at baseline. Pt denies any hx of HH or SNF and states her Dtr Ayleen is her DPOA and lives in [place]. Pt is hopeful for d/c to home today and states her friend transported her to the hospital yesterday and Dtr can transport back home at d/c. Pt does not anticipate any needs at d/c. Plan: SW to follow closely for Echo and Stress test results towards plan of d/c to home this evening pending tests. No SW needs at this time. SW to follow for any further identified needs. 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 Yes Advance Directives on File No History Provided By Patient,Medical Record Has Patient been admitted in last 30 No days? Prior Living Arrangements House Household Members none Type of transporation used prior to Drives own vehicle admit Independent with ADL's Yes Is patient alert and oriented? Yes Caregiver for Another No Barriers to Discharge No Discharge Plan Home Transportation Arrangement Friend or Dtr in [place] can transport home Referrals Initiated None needed Additional Comment Pending Echo and stress test results Whiteboard Updated in Patient Room with Yes name and ext. # of Tractor Crane Operator Review Status In Process Please Provide Date Initial DC 04/01/21 Assessment Was Performed Next Review Type Continued Stay Review
[2021-04-01 16:25] LABS: PTT Partial Thromboplastin Tim 30 SECONDS (26.4-36.2)
--- NOTE | 2021-04-01 16:55 | PM.DS.1 ---
History of Present Illness History of Present Illness Date Patient Seen: 04/01/21 Time Patient Seen: 16:55 Chief complaint: CHEST PRESSURE DIZZY Narrative: Per Josiane Molina, [facility]-: Hien Marroquin is a delightful 75-year-old female with a history of hypothyroidism, dyslipidemia, hypertension, prediabetes, history of medullary thyroid cancer stage I, thyroidectomy, history of small GI stromal tumor, and cystocele with uterine prolapse who presented to the ED with a complaint of left-sided chest pressure and dizziness that started last night.? Patient states the dizziness was sort of blinking lights which she has had similarly which she has had prior migraines that has resolved.? She had continued to have left upper chest pressure without radiation, that lasted several hrs.? Nothing worsened, improved, or changed the pain. She feel similar pain to the left side of her neck and below her left shoulder blade. Patient denies weakness, numbness, tingling, difficulty with ambulation, swallowing, speech, balance, coordination, abdominal pain, nausea, vomiting, chest palpitations, irregular heartbeat, tachycardia, shortness of breath, diaphoresis, peripheral edema, issues with bowel movements or urination, cold, cough, congestion, fevers, body aches, or chills.? She has a very mild headache today that has resolved. She is on aspirin 81 mg daily.? No cardiac stents or prior cardiac interventions. No known drug allergies.? No tobacco, alcohol or illicit.? Her primary care is Dr. Dimas Mcpherson.? Admit interview the patient reveals that she was advised that she had prediabetes several months ago and made significant changes to her diet and began to exercise.? The patient has been doing increasing upper body arm exercises daily.? I was able to reproduce her pain to the left upper area of the chest (where she c/o pressure) with palpation and with arm movement.? The patient reports that she has had increasing muscle aches and pains to her upper shoulder area and chest area with the increase in her exercise.? The patient also has lost an estimated 15-20 lb recently.? She cut out all carbohydrates and sugars in her diet after being advised the pre diabetes. 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 She has been experiencing multiple episodes of dizziness and lightheadedness upon standing. A few days ago upon waking she experienced an episode of dizziness, in which she subsequently passed out and found herself on the floor.? She reports that her A1c was 6.3 when she was advised that she was prediabetic, and has reduced her A1c to 5.5 at last check.? Her current physician is concerned that she is having low blood sugars.? At this time patient states all signs and symptoms have resolved. Upon admit patient's temp is 97.6?, BP 157/74, HR 71, R 14, O2 saturation 99% on room air.? Patient's CBC and chemistry panels were all within normal limits.? Patient's chest x-ray was negative for any acute cardiopulmonary processes.? 1st EKG demonstrated a sinus rhythm with sinus arrhythmia, rate of 68 and some depressions in lead 2 and 3 and AVF, with T-wave inversion in V3 and V4.? Patient's 2nd EKG demonstrated sinus rhythm with a rate of 66, some ST depressions, but the T-wave inversion had resolved in V3 and V4.? Patient's 1st & 2nd troponin were both negative.? ED physician contacted Dr. Zavaleta cardiology for consult:? He advised the patient be placed on a heparin drip overnight until echo could be completed, trend serial troponins and EKGs.? Patient to be admitted for chest pain rule out. Discharge Providers Provider Date of admission: 03/31/21 18:36 Discharge Date: 04/01/21 Primary care physician: Dmias Mcpherson MD Discharge provider: Prasanna Buitrago DO Summary Hospital Course Discharge Diagnosis: 1. Chest pressure, acute, present on admission, resolved 2. Lightheadedness, syncope, acute on chronic, present on admission 3. Essential hypertension, acute on chronic, present on admission 4. Hyperlipidemia, chronic, present on admission 5. Hypothyroidism status post thyroidectomy, chronic, present on admission Hospital Course: Hien Marroquin is a delightful 75-year-old female with a history of hypothyroidism, dyslipidemia, hypertension, prediabetes, history of medullary thyroid cancer stage I, thyroidectomy, history of small GI stromal tumor, and cystocele with uterine prolapse who presented to the ED with a complaint of left-sided chest pressure and dizziness that started the morning of admission. The patient was admitted for a chest pain rule out, with echocardiogram and stress testing. Echocardiogram showed a normal ejection fraction with no significant wall motion abnormalities, telemetry was unremarkable, and stress testing was also unremarkable. She was discharged home once testing was completed. Patient was recommended to follow-up with her primary care provider shortly after discharge. No medication changes were necessary. Exam Vital Signs (past 8 hours): - 04/01/21 09:00 04/01/21 10:09 04/01/21 10:30 Temperature 97.3 F L Pulse Rate 67 Respiratory Rate 17 Blood Pressure 108/62 Pulse Oximetry 98 97 100 04/01/21 13:18 04/01/21 13:44 04/01/21 16:27 Temperature 98 F Pulse Rate 79 Respiratory Rate 14 Blood Pressure 108/58 L Pulse Oximetry 99 99 98 Oxygen Delivery Method Room Air Oxygen Flow Rate 0 Narrative Exam Narrative: General:? Patient is a well-developed, appears underweight, delighful female in no distress at this time. Lungs:? Auscultation of all lung alvarez are clear without adventitious sounds, wheezes, rhonchi, or rales. Cardio:? S1 & S2 with regular rate and rhythm without murmur, rubs, or gallops, no carotid bruit, no cardiac pulsations present. Abdomen:? Soft nontender, negative for organomegaly, or masses.? Bowel sounds are present in all 4 quadrants without guarding or rebound, no CVA tenderness. Neuro:? Alert and orientated x3, strength is +5/5 in all extremities, sensation to touch intact, no gross deficits noted of cranial nerves. Objective Labs Result Diagrams: 03/31/21 13:37 03/31/21 13:37 Labs: Laboratory Results - last 24 hr 03/31/21 03/31/21 03/31/21 13:32 13:37 17:00 APTT Hemoglobin A1c 6.0 Troponin I < 0.012 Triglycerides Cholesterol LDL Cholesterol, Calc HDL Cholesterol TSH 2.58 SARS-CoV-2 (PCR) 03/31/21 04/01/21 04/01/21 17:04 00:42 00:42 APTT 123 H* D Hemoglobin A1c Troponin I < 0.012 Triglycerides Cholesterol LDL Cholesterol, Calc HDL Cholesterol TSH SARS-CoV-2 (PCR) Negative 04/01/21 04/01/21 04/01/21 05:17 06:45 16:05 APTT 62 H D 30 D Hemoglobin A1c Troponin I Triglycerides 66 Cholesterol 120 L LDL Cholesterol, Calc 60 HDL Cholesterol 47 TSH SARS-CoV-2 (PCR) PFSH Medical History (Updated 03/31/21 @ 21:51 by JENNIFER Du-TRISH) Essential hypertension History of colon polyps History of gastrointestinal stromal tumor (GIST) Hyperlipidemia Hypothyroidism associated with surgical procedure Thyroid cancer, medullary carcinoma Surgical History (Updated 03/31/21 @ 21:51 by JENNIFER Du-TRISH) History of thyroidectomy Family History Mother Diabetes mellitus Father Stroke Social History household members: none Smoking Status: Never smoker Discharge Plan Discharge Plan Patient Disposition: Home Provider Discharge Comment: You were admitted to the hospital with chest pain. Stress testing and echocardiogram are normal. Please follow up with PMD if symptoms recur. Discharge orders & Medications Prescriptions: Continued acyclovir 5 % ointment 1 applictn TOP 6XD 7 Days Qty: 15 2RF atenolol 25 mg Tablet 25 mg PO DAILY 0RF glucosamine sulfate [Glucosamine] 500 mg Tablet 500 mg PO QAM 0RF aspirin 81 mg Tablet,Delayed Release (Dr/Ec) 81 mg PO DAILY 0RF calcitriol 0.5 mcg Capsule 0.5 mcg PO DAILY 0RF calcium carbonate [Tums] 200 mg calcium (500 mg) Tablet,Chewable 400 mg PO BID PRN (Reason: Heartburn) 0RF coenzyme Q10 [Co Q-10] 200 mg Capsule 200 mg PO DAILY 0RF omega 9-oay-eyi-fish oil [Fish Oil] 1,000 mg (120 mg-180 mg) Capsule 1 cap PO QAM 0RF Multi-Vitamins with Iron 1 tab PO QAM 0RF atorvastatin [Lipitor] 20 mg Tablet 20 mg PO DAILY 0RF acetaminophen [Tylenol] 325 mg Tablet 650 mg PO Q4H PRN (Reason: Pain (Scale Score 4-6)) 0RF chlorthalidone 25 mg Tablet 12.5 mg PO DAILY 0RF levothyroxine [Synthroid] 75 mcg Tablet 75 mcg PO DAILY 0RF Follow up/Referrals: Dimas Mcpherson MD [Primary Care Provider] - Diet/Activity/Treatments Diet: Diet as Tolerated Diet comment: As tolerated Activity: As tolerated Visit Report/Discharge Packet Instructions: DI for Atypical Chest Pain, DI for Chest Pain Discharge Data Primary Care Provider: Dimas Mcpherson Attending Provider: Gil Figueroa VTE Deep Vein Thrombosis/Pulmonary Embolism Present on Admission: No
--- NOTE | 2021-04-01 17:45 | PC.NURSE ---
Day shift: paperwork signed and all questions answered. Pt encouraged to f/u w/ her PCP. No new meds. No chest pain/pressure today. VS remained WNL. Eating and drinking well w/ no nausea. Taken to car by this sql report writer at approx [phone] via . Pt;s daughter is driving her back home to [place]. She has all personal belongings.
== END 2021-04-01 17:47 | disposition home or self-care (01) ==
LOC: ED 18:24 → AC 18:36
PROVIDERS: Nurse Practitioner Family; Admitting Provider Internal Medicine; Emergency Provider Emergency Medicine; PCP Internal Medicine; Referring Provider Emergency Medicine; Visit Provider Internal Medicine
DX: R07.9 Chest pain, unspecified (principal); E03.9 Hypothyroidism, unspecified; I10 Essential (primary) hypertension; R73.03 Prediabetes; E78.5 Hyperlipidemia, unspecified; R55 Syncope and collapse; Z20.822 Contact with and (suspected) exposure to COVID-19
CPT/HCPCS: 36415; 71045; 78452; 80053; 80061; 82550; 83036; 83690; 83735; 84443; 84484; 85025; 85610; 85730; 87635; 93005; 93010; 93017; 93306; 94760; 96365; 96366; 96368; 96376; 99284; C9803; G0378; A9502; J1644; J3475

== ENCOUNTER → 2022-03-30 09:51 | Outpatient (CLI) | payer MEDICARE, OTHER, SELFPAY ==
[2021-03-31 20:09] VITALS: BMI 22.9
--- NOTE | 2022-03-30 | DI.US.S_ITS ---
PROCEDURE: US CAROTID DOPPLER BI INDICATIONS: OCCLUSION AND STENOSIS OF BILATERAL CAROTID ARTERIES TECHNIQUE: Color and pulse Doppler interrogation was performed of both carotid systems, with image documentation and velocity measurements. COMPARISON: [facility], US, US CAROTID BILATERAL, 08/17/2019, 11:44. FINDINGS: Stenosis calculations are based on SRU (Society of Radiologists in Ultrasound) criteria. The flow velocities and the arterial waveforms are normal within both carotid arterial systems. Atherosclerotic plaque is seen on both sides. The estimated degree of internal carotid artery stenosis is less than 50%. There is elevated flow velocity seen within the left external carotid artery at 182 centimeters/second. Antegrade flow is confirmed within both vertebral arteries. IMPRESSION: No hemodynamically significant stenosis is seen within the INTERNAL carotid arteries. By velocity criteria, there is greater than 50% stenosis seen involving the left EXTERNAL carotid artery, which is similar to 2019. Atherosclerotic plaque is noted bilaterally. Dictated by: Obinna Hudson M.D. on 03/30/2022 at 10:52 Approved by: Obinna Hudson M.D. on 03/30/2022 at 10:53
== END ==
PROVIDERS: PCP Internal Medicine; Referring Provider Internal Medicine Cardiovascular Disease; Visit Provider Internal Medicine Cardiovascular Disease
DX: I65.23 Occlusion and stenosis of bilateral carotid arteries (principal)
CPT/HCPCS: 93880

== ENCOUNTER → 2023-07-27 09:44 | Outpatient (CLI) | payer MEDICARE, OTHER, SELFPAY ==
[2021-03-31 20:09] VITALS: BMI 22.9
--- NOTE | 2023-07-27 09:47 | DI.RAD.S_ITS ---
PROCEDURE: XR DEXA AXIAL SKELETON INDICATIONS: OSTEOPOROSIS SCREENING COMPARISON: [facility], [facility], XR DEXA AXIAL SKELETON, 10/14/2017, 13:05. FINDINGS: Lumbar Spine: L1-L3. Bone mineral density 0.970 g/cm2, T score -0.4. Left Hip: Bone mineral density 0.925 g/cm2, T score 0.1. Left Femoral Neck: Bone mineral density 0.781 g/cm2, T score -0.6. Right Hip: Bone mineral density 0.925 g/cm2, T score -0.1. Right Femoral Neck: Bone mineral density 0.817 g/cm2, T score -0.3. Fracture Risk Calculation (when applicable): 10-year fracture risk of a major osteoporotic fracture 5.1% and of a hip fracture 0.7%. (T score greater or equal to -1.0 to: NORMAL) (T score from -1.1 to -2.4: OSTEOPENIA) (T score less than or equal to -2.5: OSTEOPOROSIS) IMPRESSION: Bone mineral density is within normal limits. Follow-up guidelines as follows: Osteoporosis: Consider a repeat DEXA and Vertebral Fracture Assessment (VFA) exam in 2 years or sooner if medically necessary, to reassess this patient's status. Osteopenia: Consider a repeat DEXA in 2-3 years to reassess this patient's status, or if there is a new clinical indication. Normal: Consider a repeat DEXA in 5 years or sooner, or if there is a new clinical indication. All treatment decisions require clinical judgment and consideration of individual patient factors, including patient preferences, comorbidities, previous drug use, risk factors not captured in the FRAX model (e.g., frailty, falls, vitamin D deficiency, increased bone turnover, interval significant decline in bone density ) and possible under- or over-estimation of fracture risk by FRAX. In addition, the NOF Guide recommends that FDA-approved medical therapies be considered in postmenopausal women and men age >= 50 years with a: * Hip or vertebral (clinical or morphometric) fracture * T-score of <=-2.5 at the spine or hip * Ten-year fracture probability by FRAX of >= 3% for hip fracture or >=20% for major osteoporotic fracture. People with diagnosed cases of osteoporosis or at high risk for fracture should have regular bone mineral density tests. For patients eligible for Medicare, routine testing is allowed once every 2 years. The testing frequency can be increased to one year for patients who have rapidly progressing disease, those who are receiving or discontinuing medical therapy to restore bone mass, or have additional risk factors. Dictated by: Mukul Shaw M.D. on 07/27/2023 at 17:22 Approved by: Mukul Shaw M.D. on 07/27/2023 at 17:37
== END ==
PROVIDERS: PCP Internal Medicine; Referring Provider Internal Medicine; Visit Provider Internal Medicine
DX: N95.8 Other specified menopausal and perimenopausal disorders (principal)
CPT/HCPCS: 77080

== ENCOUNTER → 2024-05-04 09:13 | Outpatient (CLI) | payer MEDICARE, OTHER, SELFPAY ==
[2021-03-31 20:09] VITALS: BMI 22.9
--- NOTE | 2024-05-04 09:15 | DI.CT.S_ITS ---
PROCEDURE: CT ABDOMEN PELVIS W CON INDICATIONS: ABDOMINAL TENDERNESS/ABD PAIN TECHNIQUE: After the administration of intravenous contrast, axial sections acquired from the lung bases to the pubic symphysis. Coronal and sagittal reformats were performed. For radiation dose reduction, the following was used: automated exposure control, adjustment of mA and/or kV according to patient size. COMPARISON: [facility], CT, ABDOMEN/PELVIS WITH CONTRAST, 06/13/2017, 8:59. [facility], CT, ABDOMEN/PELVIS WITH CONTRAST, 02/13/2014, 9:02. FINDINGS: Image quality: Diagnostic. Lower Chest: No significant findings. Small hiatal hernia. Heart size is normal. ABDOMEN: Liver: No solid mass. Hepatic steatosis. Multiple hepatic hemangiomas not significantly changed. Gallbladder: No radiopaque gallstones or wall thickening. Biliary ducts: No biliary dilation. Pancreas: No ductal dilation. Spleen: Size is within normal limits. Adrenal Glands: No adrenal nodules. Kidneys and Ureters: No hydronephrosis. No solid mass. No complex renal cystic lesion which requires follow up. Stomach and Bowel: Normal colonic caliber, without significant wall thickening. No evidence for small bowel obstruction or associated inflammatory changes. The appendix is not definitively visualized. However, no secondary findings of acute inflammation are noted in the right lower quadrant. Peritoneum: No abnormal intraperitoneal fluid. No free air. Ventral Wall: No significant ventral hernia. Abdominal Nodes: No retroperitoneal or mesenteric adenopathy by size criteria. Vessels: Scattered atherosclerotic calcifications of the abdominal aorta and iliac vessels without aneurysmal dilatation. The inferior vena cava appears patent. PELVIS: Pelvic Organs: Redemonstration of heterogeneous uterus likely related to multi fibroid uterus. Bladder: No bladder wall thickening, accounting for underdistention. Pelvic Nodes: No enlarged lymph nodes. Miscellaneous: No inguinal hernias are seen. Bones: No aggressive osseous abnormality. Visualized osseous structures appear intact without acute fracture or focal destructive lesion. No acute compression fractures of the imaged spine. IMPRESSION: CT abdomen and pelvis without acute abnormalities to explain patient's symptoms. Redemonstration of hepatic steatosis and multiple hepatic hemangiomas. Small hiatal hernia. Atherosclerosis. Other chronic/non-acute findings as above. Dictated by: Garry Dupont M.D. on 05/07/2024 at 18:16 Approved by: Garry Dupont M.D. on 05/07/2024 at 18:22
[2024-05-04 10:03] LABS: Estimated Glomerular Filt Rate > 60 mL/min (>60)
== END ==
PROVIDERS: PCP Internal Medicine
DX: K76.0 Fatty (change of) liver, not elsewhere classified (principal); D18.09 Hemangioma of other sites; K44.9 Diaphragmatic hernia without obstruction or gangrene; I70.90 Unspecified atherosclerosis; R10.819 Abdominal tenderness, unspecified site; R10.9 Unspecified abdominal pain; R07.9 Chest pain, unspecified
CPT/HCPCS: 36415; 74177; 82565; Q9967